=== PATIENT | female | born 1965 | race African-American/Black ===

== ENCOUNTER → 2019-06-02 | Outpatient (CLI) | payer OTHER ==
[~2019-06-02] VITALS: Ht 167.6 cm; Wt 72.1 kg
[~2019-06-02] MED LIST: SINCALIDE 1.44 MCG in IV NORMAL SALINE 50ML 30 ML IV ONE
--- NOTE | 2019-06-02 15:36 | RAD ---
EXAM: HEPATOBILIARY SCINTIGRAPHY WITH GALLBLADDER EJECTION FRACTION CALCULATION. HISTORY: Right upper quadrant abdominal pain. TECHNIQUE: 5.5 mCi technetium-99m Choletec were administered intravenously and scintigraphic images of the abdomen obtained. After filling of the gallbladder, 1.4 mcg of sincalide were infused and the gallbladder ejection fraction calculated. FINDINGS: There is prompt hepatic clearance of tracer from the blood pool. There is homogeneous distribution throughout the liver. There is normal filling of the gallbladder and clearance into the biliary tree and small bowel. The gallbladder ejection fraction is 98% (normal >35%). IMPRESSION: 1. Normal gallbladder ejection fraction. Electronically signed by: Shon Flores MD (06/02/2019 3:34 PM) [id number]
== END | disposition home or self-care (01) ==
LOC: NM 07:43
DX: K82.8 Other specified diseases of gallbladder (principal)
CPT/HCPCS: 78227; A9537; J2805